=== PATIENT | female | born 1995 | race Caucasian/White ===

== ENCOUNTER 2017-01-19 08:35 | Emergency (ER) | payer MEDICAID ==
--- NOTE | ~2017-01-19 | EKG ---
PATIENT: CAROLINE BAZAN UNIT #: [id number] Ventricular Rate: 64 BPM Atrial Rate: 64 BPM P-R Interval: 158 ms QRS Duration: 90 ms Q-T Interval: 392 ms QTC Calculation(Bezet): 404 ms P Anthony: 7 degrees Calculated R Anthony: 69 degrees Calculated T Anthony: 53 degrees Diagnosis Line: Normal sinus rhythm Diagnosis Line: Normal ECG Diagnosis Line: No previous ECGs available Diagnosis Line: Confirmed by TATO MCCLELLAN MD ([id number]) on Diagnosis Line: 01/26/2017 8:28:35 AM INTERPRETING MD: ELEUTERIO LORA
[~2017-01-19 08:35] MED LIST: MOTRIN600 M1 PO; PRENA1 CHEW TA1.4 MG; ZITHROMAX PO
[2017-01-19] MEDS ORDERED: NO MEDICATIONS (08:40)
[2017-01-19 09:08] LABS: URINE APPEARANCE CLEAR; URINE BILIRUBIN NEG (NEG); URINE BLOOD NEG (NEG); URINE COLOR YELLOW; URINE GLUCOSE NEG (NORM); URINE KETONE NEG (NEG); URINE LEUKOCYTE ESTERASE NEG (NEG); URINE NITRATE NEG (NEG); URINE PROTEIN NEG (NEG); URINE SPECIFIC GRAVITY >=1.030 (1.003-1.035); URINE UROBILINOGEN 0.2 MG/DL (NORM)
[2017-01-19 09:09] LABS: MICRO INDICATED? NO
[2017-01-19 09:19] LABS: AMPHETAMINE NEG (NEG); BARBITURATES NEG (NEG); BENZODIAZEPINES NEG (NEG); COCAINE NEG (NEG); MARIJUANA POS (NEG); OPIATES NEG (NEG); TRICYCLIC ANTIDEPRESSANTS NEG (NEG); U METHADONE NEG (NEG)
== END 2017-01-19 10:00 | disposition home or self-care (01) ==
LOC: SED 08:35
PROVIDERS: Emergency Medicine
DX: E86.0 Dehydration (principal); F17.200 Nicotine dependence, unspecified, uncomplicated; Z88.8 Allergy status to other drugs, medicaments and biological substances
CPT/HCPCS: 80307; 81003; 84703; 93005; 99284

== ENCOUNTER 2017-02-10 14:44 | Emergency (ER) | payer MEDICAID ==
[~2017-02-10 14:44] MED LIST changes: +NO MEDICATIONS
== END 2017-02-10 16:11 | disposition home or self-care (01) ==
LOC: SED 14:44
DX: S61.411A Laceration without foreign body of right hand, initial encounter (principal); F17.210 Nicotine dependence, cigarettes, uncomplicated; R03.0 Elevated blood-pressure reading, without diagnosis of hypertension; W26.8XXA Contact with other sharp object(s), not elsewhere classified, initial encounter; Y92.009 Unspecified place in unspecified non-institutional (private) residence as the place of occurrence of the external cause
CPT/HCPCS: 12001; 99283